=== PATIENT | female | born 1955 | race Caucasian/White ===

== ENCOUNTER 2017-05-27 10:00 | Day surgery (SDC) | payer OTHER ==
[~2017-05-27 10:00] MED LIST: LIDOCAINE 2% MDV 20 ML VIAL As Ordered; PROPOFOL 200 MG/20 ML VIAL As Ordered
[2017-05-27] MEDS ORDERED: NS 1,000 ML IV (10:15)
== END 2017-05-27 11:30 | disposition home or self-care (01) ==
LOC: M OPP 10:00
DX: Z12.11 Encounter for screening for malignant neoplasm of colon (principal); R00.2 Palpitations; I34.1 Nonrheumatic mitral (valve) prolapse; M19.90 Unspecified osteoarthritis, unspecified site; F41.9 Anxiety disorder, unspecified; Z78.0 Asymptomatic menopausal state; Z79.82 Long term (current) use of aspirin; Z79.899 Other long term (current) drug therapy
CPT/HCPCS: 45378

== ENCOUNTER → 2022-02-22 | Outpatient (CLI) | payer MEDICARE, OTHER ==
[~2022-02-22] MED LIST changes: +ALBU8.5H; +ASPI81TA26 PO; +CLAR10CA3 PO; -LIDOCAINE 2% MDV 20 ML VIAL As Ordered; +MULT1TAB10 PO; +PANT40TA29 PO; +PROP10TA56 PO; -PROPOFOL 200 MG/20 ML VIAL As Ordered; +REDPOW PO; +VITA100093 PO; +ZYRTTAB8 PO
== END ==
LOC: M LABSMTC 09:29
PROVIDERS: ATTEND Anesthesiology
DX: Z01.812 Encounter for preprocedural laboratory examination (principal); Z11.52 Encounter for screening for COVID-19

== ENCOUNTER 2022-02-26 10:27 | Day surgery (SDC) | payer MEDICARE ==
[~2022-02-26] VITALS: Ht 160 cm; Wt 68.0 kg
[~2022-02-26 10:27] MED LIST changes: +NS 1,000 ML IV ONE
[2022-02-26] MEDS ORDERED: LIDOCAINE 2% 100MG/5ML SDV (FOR ANES.) As Ordered ONE (10:41)
[2022-02-26] MEDS ORDERED: propofoL 500 MG/50 ML VIAL As Ordered ONE (10:41)
[2022-02-26] MEDS ORDERED: fentaNYL 100 MCG/2 ML INJECTION As Ordered ONE (10:42)
[2022-02-26 12:00] VITALS: BP 137/79
[2022-02-26] MEDS ORDERED: propofoL 200 MG/20 ML VIAL As Ordered ONE (12:10)
== END 2022-02-26 12:00 | disposition home or self-care (01) ==
LOC: M OPP 10:27
PROVIDERS: ATTEND Surgery
DX: K31.89 Other diseases of stomach and duodenum (principal); K29.80 Duodenitis without bleeding; K29.50 Unspecified chronic gastritis without bleeding; I34.1 Nonrheumatic mitral (valve) prolapse; E78.00 Pure hypercholesterolemia, unspecified; M19.90 Unspecified osteoarthritis, unspecified site; Z79.51 Long term (current) use of inhaled steroids; Z79.899 Other long term (current) drug therapy
CPT/HCPCS: 43239; 88305; J3010